=== PATIENT | male | born 1950 | race Caucasian/White ===

== ENCOUNTER → 2016-10-10 | Outpatient (CLI) | payer OTHER ==
[~2016-10-10] MED LIST: ASPI81TA27 PO; ATEN100T PO; ATOR1TAB PO; HYDR12.56 PO; LEVEMIR SC; LEVO175T33 PO; LISI40TA PO; PAR20T PO; [UNRECOGNIZED DRUG - CODE] EX; [UNRECOGNIZED DRUG - CODE] PO
[2016-10-10 12:49] LABS: Basophils # (auto) 0 uL; Basophils % (auto) 0.3 % (0.0-2.0); Eosinophils # (auto) 0.2 uL; Eosinophils % (auto) 1.8 % (0.0-7.0); Hematocrit 42.2 % (41.0-53.0); Hemoglobin 14.2 g/dL (13.5-17.5); Lymphocytes # (auto) 2.3 uL; Lymphocytes % (auto) 19.4 % (10.0-50.0); Mean Corpuscular Hgb Conc. 33.8 g/dL (32.0-36.0); Mean Platelet Volume 7.9 fL (7.4-10.4); Monocytes # (auto) 0.8 uL; Monocytes % (auto) 6.4 % (0.0-12.0); Neutrophils # (auto) 8.6 uL; Neutrophils % (auto) 72.1 % (37.0-80.0); Platelet Count (auto) 349 10^3/uL (140-450); Red Cell Distribution Width 13.6 % (11.6-16.0); White Blood Cell 11.9 10^3/uL (4.4-10.8)
[2016-10-10 12:58] LABS: Urine Bilirubin Negative (Negative); Urine Blood Negative /uL (Negative); Urine Color Yellow (Yellow); Urine Glucose TRACE mg/dL (Normal); Urine Ketone Negative (Negative); Urine Mucus FEW (None Seen); Urine Nitrite Negative (Negative); Urine RBC 1 /hpf (0 - 3); Urine Squamous Epithelial Cell FEW /hpf (<5); Urine Urobilinogen Normal (Negative)
[2016-10-10 13:20] LABS: Albumin 3.5 g/dL (3.4-5.0); BUN/Creatinine Ratio 33.3; Bilirubin, Total 0.5 mg/dL (0.2-1.0); Calcium 9.2 mg/dL (8.5-10.1); Total Protein 7.7 g/dL (6.4-8.2)
== END | disposition home or self-care (01) ==
LOC: LAB 12:09
PROVIDERS: ATTEND Internal Medicine
DX: Z00.00 Encounter for general adult medical examination without abnormal findings (principal); I10 Essential (primary) hypertension; E78.2 Mixed hyperlipidemia; E55.9 Vitamin D deficiency, unspecified
CPT/HCPCS: 36415; 80053; 80061; 81001; 82043; 83036; 84153; 85025

== ENCOUNTER → 2016-10-10 | Outpatient (CLI) | payer OTHER | END | disposition home or self-care (01) | LOC: XY 12:48 | PROVIDERS: ATTEND Internal Medicine | DX: M79.604 Pain in right leg (principal); M79.605 Pain in left leg; R53.1 Weakness | CPT/HCPCS: 93923; 93925 ==

== ENCOUNTER 2017-05-19 18:27 | Inpatient (IN) | payer OTHER ==
[~2017-05-19] VITALS: Ht 182.9 cm; Wt 142.1 kg
[~2017-05-19 18:27] MED LIST changes: +PSEU120T2 PO; -[UNRECOGNIZED DRUG - CODE] PO
[2017-05-19 20:14] LABS: Basophils # (auto) 0 uL; Basophils % (auto) 0.5 % (0.0-2.0); Eosinophils # (auto) 0.3 uL; Eosinophils % (auto) 3.1 % (0.0-7.0); Hematocrit 37.2 % (41.0-53.0); Lymphocytes # (auto) 1.3 uL; Lymphocytes % (auto) 14.9 % (10.0-50.0); Mean Corpuscular Hemoglobin 28.7 pg (28.0-32.0); Mean Corpuscular Hgb Conc. 32.1 g/dL (32.0-36.0); Mean Corpuscular Volume 89.1 fL (80.0-100.0); Monocytes # (auto) 0.7 uL; Monocytes % (auto) 7.5 % (0.0-12.0); Neutrophils # (auto) 6.5 uL; Nucleated Red Blood Cells % 0.1 %; Platelet Count (auto) 284 10^3/uL (140-450); Red Blood Cells 4.18 10^6/uL (4.5-5.90); Red Cell Distribution Width 16.4 % (11.8-14.3); White Blood Cell 8.8 10^3/uL (4.4-10.8)
[2017-05-19 20:28] LABS: Partial Thromboplastin Time 25.2 sec (22.64-33.71); Prothrombin Time 10.9 sec (9.37-12.3)
[2017-05-19 20:35] LABS: Albumin 3.4 g/dL (3.4-5.0); BUN/Creatinine Ratio 49.6; Calcium 8.7 mg/dL (8.5-10.1); Magnesium 2.5 mg/dL (1.6-2.6); Potassium 5.3 mmol/L (3.5-5.1)
[2017-05-19 20:38] LABS: Bilirubin, Total 0.3 mg/dL (0.2-1.0); Total Protein 7.7 g/dL (6.4-8.2)
[2017-05-19] MEDS ORDERED: ACETAMINOPHEN/CODEINE#3 (300/30mg) TAB PO ONE (23:15)
[2017-05-19] MEDS ORDERED: metFORMIN HYDROCHLORIDE 500 MG TAB PO ONE (23:15)
[2017-05-19] MEDS ORDERED: CARVEDILOL 12.5 MG TAB PO ONE (23:15)
[2017-05-19] MEDS ORDERED: GABAPENTIN 300 MG CAP PO ONE (23:15)
[2017-05-19] MEDS ORDERED: INSULIN DETEMIR(LEVEMIR) 1unit/0.01ml Soln (100units/ml) SC ONE (23:22)
[2017-05-20] VITALS (7 sets, daily range): BP systolic 110–155; BP diastolic 46–76
[2017-05-20] MEDS ORDERED: INSULIN DETEMIR(LEVEMIR) 1unit/0.01ml Soln (100units/ml) SC ONE
[2017-05-20] MEDS ORDERED: MORPHINE SULFATE 4 MG/ML SYR/VIAL IV PRN (01:00)
[2017-05-20] MEDS ORDERED: NITROGLYCERIN 0.4 MG SL TAB SL PRN (01:00)
[2017-05-20] MEDS ORDERED: SODIUM CHLORIDE 0.9% 250 ML IV ONE (02:15)
[2017-05-20] MEDS ORDERED: ACETAMINOPHEN 500 MG TAB PO PRN (02:45)
[2017-05-20] MEDS ORDERED: ONDANSETRON HCL 4 MG/2 ML VIAL IV PRN (02:45)
[2017-05-20] MEDS ORDERED: DEXTROSE (50%) 50ML SYRG IV PRN (02:45)
[2017-05-20] MEDS ORDERED: HYDROcodone-ACET 5/325MG TAB PO PRN (02:45)
[2017-05-20] MEDS: ACCU-CHEK COMFORT CURVE STRIP VI SCH ×4 (06:10→22:09)
[2017-05-20] MEDS: InsuLIN REG 1unit/0.01ml Soln (100units/ml) SC SCH ×3 (06:11→17:33)
[2017-05-20] MEDS: LEVOTHYROXINE SODIUM 50 MCG TAB PO SCH (06:12)
[2017-05-20 09:20] LABS: Basophils # (auto) 0 uL; Basophils % (auto) 0.5 % (0.0-2.0); Eosinophils # (auto) 0.3 uL; Eosinophils % (auto) 3.6 % (0.0-7.0); Hematocrit 35.1 % (41.0-53.0); Hemoglobin 11.3 g/dL (13.5-17.5); Lymphocytes # (auto) 1.5 uL; Lymphocytes % (auto) 17.3 % (10.0-50.0); Mean Corpuscular Hemoglobin 28.8 pg (28.0-32.0); Mean Corpuscular Hgb Conc. 32.2 g/dL (32.0-36.0); Mean Corpuscular Volume 89.5 fL (80.0-100.0); Monocytes # (auto) 0.8 uL; Monocytes % (auto) 9.8 % (0.0-12.0); Neutrophils # (auto) 5.8 uL; Neutrophils % (auto) 68.8 % (37.0-80.0); Platelet Count (auto) 251 10^3/uL (140-450); Red Blood Cells 3.92 10^6/uL (4.5-5.90); Red Cell Distribution Width 16.1 % (11.8-14.3); White Blood Cell 8.4 10^3/uL (4.4-10.8)
[2017-05-20 09:47] LABS: BUN/Creatinine Ratio 49.1; Calcium 8.4 mg/dL (8.5-10.1); Potassium 4.9 mmol/L (3.5-5.1)
[2017-05-20] MEDS: ATORVASTATIN 20 MG TAB PO SCH (10:00)
[2017-05-20] MEDS ORDERED: FUROSEMIDE 20 MG TAB PO SCH (10:00)
[2017-05-20] MEDS: ASPirin-EC 81 mg tab PO SCH (10:00)
[2017-05-20] MEDS ORDERED: ALBUTEROL SULF 2.5 MG/0.5ML(0.5%) NEB SOLN NEB PRN (11:15)
[2017-05-20] MEDS: CLOPIDOGREL BISULFATE 75 MG TAB PO SCH (11:23)
[2017-05-20] MEDS: CARVEDILOL 3.125 MG TAB PO SCH ×3 (11:24→22:15)
[2017-05-20] MEDS ORDERED: FUROSEMIDE 40 MG/4 ML VIAL IV ONE ×2 (14:00→18:00)
[2017-05-20] MEDS ORDERED: POTASSIUM CHL 20 Meq TABLET PO ONE (18:00)
[2017-05-20] MEDS ORDERED: InsuLIN REG 1unit/0.01ml Soln (100units/ml) SC SCH (22:00)
[2017-05-21] VITALS (7 sets, daily range): BP systolic 100–155; BP diastolic 50–85
[2017-05-21 05:48] LABS: Basophils # (auto) 0.1 uL; Basophils % (auto) 0.7 % (0.0-2.0); Eosinophils # (auto) 0.2 uL; Eosinophils % (auto) 2.9 % (0.0-7.0); Hematocrit 35.2 % (41.0-53.0); Hemoglobin 11.6 g/dL (13.5-17.5); Lymphocytes # (auto) 1.6 uL; Lymphocytes % (auto) 19.3 % (10.0-50.0); Mean Corpuscular Volume 87.8 fL (80.0-100.0); Monocytes # (auto) 0.8 uL; Monocytes % (auto) 9.3 % (0.0-12.0); Neutrophils # (auto) 5.6 uL; Neutrophils % (auto) 67.8 % (37.0-80.0); Platelet Count (auto) 277 10^3/uL (140-450); Red Blood Cells 4.01 10^6/uL (4.5-5.90); Red Cell Distribution Width 16.4 % (11.8-14.3); White Blood Cell 8.2 10^3/uL (4.4-10.8)
[2017-05-21] MEDS: FUROSEMIDE 20 MG TAB PO SCH ×2 (06:00→18:28)
[2017-05-21 06:05] LABS: Albumin 3.2 g/dL (3.4-5.0); Calcium 8.8 mg/dL (8.5-10.1); Potassium 4.2 mmol/L (3.5-5.1)
[2017-05-21 06:07] LABS: BUN/Creatinine Ratio 43.8
[2017-05-21 06:09] LABS: Bilirubin, Total 0.4 mg/dL (0.2-1.0)
[2017-05-21] MEDS: InsuLIN REG 1unit/0.01ml Soln (100units/ml) SC SCH ×3 (06:35→17:26)
[2017-05-21] MEDS: ACCU-CHEK COMFORT CURVE STRIP VI SCH ×3 (06:35→17:25)
[2017-05-21] MEDS: LEVOTHYROXINE SODIUM 50 MCG TAB PO SCH (06:35)
[2017-05-21] MEDS: ATORVASTATIN 20 MG TAB PO SCH (09:58)
[2017-05-21] MEDS: CARVEDILOL 3.125 MG TAB PO SCH (09:58)
[2017-05-21] MEDS: CLOPIDOGREL BISULFATE 75 MG TAB PO SCH (09:58)
[2017-05-21] MEDS: ASPirin-EC 81 mg tab PO SCH (09:58)
[2017-05-21] MEDS ORDERED: LISINOPRIL 20 MG TAB PO SCH (10:00)
[2017-05-21] MEDS ORDERED: FUROSEMIDE 20 MG TAB PO ONE (11:15)
[2017-05-21] MEDS ORDERED: PARoxetine 20 MG TAB PO ONE (12:30)
[2017-05-22] MEDS ORDERED: PARoxetine 20 MG TAB PO SCH (10:00)
== END 2017-05-21 20:20 | disposition home or self-care (01) | DRG 280 ==
LOC: ER 18:27 → TELE 18:28 → ER 20:51 → TELE 05-20 02:40 → TELE-CENTR 05-20 02:47
PROVIDERS: ADMIT Nurse Practitioner Family; ATTEND Family Medicine
DX: I21.A1 Myocardial infarction type 2 (principal); I50.43 Acute on chronic combined systolic (congestive) and diastolic (congestive) heart failure; E11.40 Type 2 diabetes mellitus with diabetic neuropathy, unspecified; E11.65 Type 2 diabetes mellitus with hyperglycemia; J44.1 Chronic obstructive pulmonary disease with (acute) exacerbation; Z68.41 Body mass index [BMI] 40.0-44.9, adult; I11.0 Hypertensive heart disease with heart failure; D64.9 Anemia, unspecified; E03.9 Hypothyroidism, unspecified; E66.01 Morbid (severe) obesity due to excess calories; E78.5 Hyperlipidemia, unspecified; E87.5 Hyperkalemia; F41.9 Anxiety disorder, unspecified; G89.29 Other chronic pain; G56.03 Carpal tunnel syndrome, bilateral upper limbs; M54.12 Radiculopathy, cervical region; M54.5 Low back pain; I25.10 Atherosclerotic heart disease of native coronary artery without angina pectoris; M19.90 Unspecified osteoarthritis, unspecified site; Z79.02 Long term (current) use of antithrombotics/antiplatelets; Z79.4 Long term (current) use of insulin; Z79.82 Long term (current) use of aspirin; Z79.899 Other long term (current) drug therapy; Z80.7 Family history of other malignant neoplasms of lymphoid, hematopoietic and related tissues; Z82.49 Family history of ischemic heart disease and other diseases of the circulatory system; Z83.3 Family history of diabetes mellitus; Z85.72 Personal history of non-Hodgkin lymphomas; Z98.61 Coronary angioplasty status; Z88.0 Allergy status to penicillin
CPT/HCPCS: 36415; 36600; 70450; 71010; 72125; 80048; 80053; 80061; 82550; 82805; 82962; 83036; 83735; 83880; 84443; 84484; 85025; 85610; 85730; 93005; 93306; 96372; 96374; 96375; J1815

== ENCOUNTER → 2019-01-12 | Outpatient (CLI) | payer OTHER ==
[~2019-01-12] MED LIST changes: +ASPI-404 PO; -ASPI81TA27 PO; -LISI40TA PO; -[UNRECOGNIZED DRUG - CODE] EX
[2019-01-12 13:32] LABS: Basophils # (auto) 0.1 uL; Basophils % (auto) 0.9 % (0.0-2.0); Eosinophils # (auto) 0.3 uL; Eosinophils % (auto) 3.5 % (0.0-7.0); Hematocrit 37.2 % (41.0-53.0); Hemoglobin 12.4 g/dL (13.5-17.5); Lymphocytes # (auto) 1.8 uL; Mean Corpuscular Hemoglobin 30.2 pg (28.0-32.0); Mean Corpuscular Hgb Conc. 33.4 g/dL (32.0-36.0); Mean Corpuscular Volume 90.2 fL (80.0-100.0); Monocytes # (auto) 0.7 uL; Monocytes % (auto) 7.8 % (0.0-12.0); Neutrophils # (auto) 6.4 uL; Neutrophils % (auto) 68.8 % (37.0-80.0); Platelet Count (auto) 281 10^3/uL (140-450); Red Blood Cells 4.12 10^6/uL (4.5-5.90); Red Cell Distribution Width 14.3 % (11.8-14.3); White Blood Cell 9.3 10^3/uL (4.4-10.8)
[2019-01-12 13:40] LABS: Urine Bacteria NONE SEEN /hpf (None Seen); Urine Blood TRACE /uL (Negative); Urine Mucus FEW (None Seen); Urine Specific Gravity 1.017 (1.001-1.035); Urine WBC 1 /hpf (0 - 3)
[2019-01-12 14:35] LABS: Albumin 3.3 g/dL (3.4-5.0); Calcium 8.9 mg/dL (8.5-10.1); Potassium 4.2 mmol/L (3.5-5.1)
[2019-01-12 14:41] LABS: BUN/Creatinine Ratio 23.2; Bilirubin, Total 0.4 mg/dL (0.2-1.0); Total Protein 7.5 g/dL (6.4-8.2)
== END | disposition home or self-care (01) ==
LOC: LAB 13:10
PROVIDERS: ATTEND Physician Assistant
DX: Z12.5 Encounter for screening for malignant neoplasm of prostate (principal); I11.0 Hypertensive heart disease with heart failure; I50.9 Heart failure, unspecified; R53.83 Other fatigue; K21.9 Gastro-esophageal reflux disease without esophagitis; G47.33 Obstructive sleep apnea (adult) (pediatric); E11.65 Type 2 diabetes mellitus with hyperglycemia
CPT/HCPCS: 36415; 80053; 80061; 81001; 83036; 84153; 84403; 85025

== ENCOUNTER 2019-01-23 08:02 | Inpatient (IN) | payer OTHER ==
[2019-01-21 11:31] LABS: Basophils # (auto) 0.1 uL; Basophils % (auto) 0.7 % (0.0-2.0); Eosinophils # (auto) 0.4 uL; Eosinophils % (auto) 3.6 % (0.0-7.0); Hematocrit 37.1 % (41.0-53.0); Hemoglobin 12.4 g/dL (13.5-17.5); Lymphocytes # (auto) 1.8 uL; Lymphocytes % (auto) 16.1 % (10.0-50.0); Mean Corpuscular Hemoglobin 30.1 pg (28.0-32.0); Mean Corpuscular Hgb Conc. 33.4 g/dL (32.0-36.0); Mean Corpuscular Volume 90.3 fL (80.0-100.0); Monocytes # (auto) 0.9 uL; Monocytes % (auto) 7.8 % (0.0-12.0); Neutrophils # (auto) 7.9 uL; Neutrophils % (auto) 71.8 % (37.0-80.0); Platelet Count (auto) 267 10^3/uL (140-450); Red Blood Cells 4.11 10^6/uL (4.5-5.90); Red Cell Distribution Width 14.4 % (11.8-14.3)
[2019-01-21 11:49] LABS: INR 0.97 (0.9-1.15); Partial Thromboplastin Time 24.9 sec (23.64-32.05)
[2019-01-21 12:11] LABS: Urine Bacteria NONE SEEN /hpf (None Seen); Urine Blood Negative /uL (Negative); Urine WBC <1 /hpf (0 - 3)
[2019-01-21 14:06] LABS: Potassium 4.3 mmol/L (3.5-5.1)
[2019-01-21 14:10] LABS: Albumin 3.6 g/dL (3.4-5.0); BUN/Creatinine Ratio 27.2; Bilirubin, Total 0.4 mg/dL (0.2-1.0); Total Protein 7.3 g/dL (6.4-8.2)
[~2019-01-23] VITALS: Ht 188 cm; Wt 135.0 kg
[~2019-01-23 08:02] MED LIST changes: -ATEN100T PO; +BENA40TA7 PO; +CAR125T PO; +CHOL1TAB42 PO; +CLOP75TA28 PO; +FURO1TAB31 PO; +GLIP10TA9 PO; -HYDR12.56 PO; +LACTCAP3 PO; -LEVO175T33 PO; +LEVO25TA49 PO; +METF-372 PO; +OME20T PO; -PAR20T PO; +PARO10TA93 PO; +POTA1TAB61 PO; -PSEU120T2 PO
[2019-01-23] MEDS ORDERED: LIDOCAINE 2%HCL (LOCAL ANESTH.) INJ 20ML MDV ONE (08:14)
[2019-01-23] MEDS ORDERED: SODIUM CHL 0.9% 0 ML ONE (08:53)
[2019-01-23] MEDS ORDERED: fentaNYL CITRATE 100 MCG/2 ML VL ONE (08:53)
[2019-01-23] MEDS ORDERED: ANGIOMAX 250 MG VIAL IV ONE (08:53)
[2019-01-23] MEDS ORDERED: MIDAZOLAM HCL 1MG/1ML-2 ML VIAL ONE ×2 (08:53→09:37)
[2019-01-23] MEDS ORDERED: IOHEXOL 350 MG/ML 100ML IJ ONE (08:54)
[2019-01-23] MEDS ORDERED: VERAPAMIL 2.5MG/ML INJ 2ML VIAL IV ONE (09:22)
[2019-01-23] MEDS ORDERED: DEXTROSE (50%) 50ML SYRG IV PRN (11:15)
[2019-01-23] MEDS: InsuLIN REG 1unit/0.01ml Soln (100units/ml) SC SCH ×3 (11:30→23:29)
[2019-01-23] MEDS: ACCU-CHEK COMFORT CURVE STRIP VI SCH ×3 (11:55→23:29)
[2019-01-23 16:30] VITALS: BP 159/78
--- NOTE | 2019-01-23 16:35 | NUR ---
PATIENT ARRIVED ON UNIT VIA WHEELCHAIR. PATIENT SHOWS NO SIGNS OF DISTRESS, WEARING 2 L NC. RADIAL SITE IS CLEAN DRY INTACT. REPORTING MILD THUMB NUMBNESS FROM LIDOCAINE INJECTION. VS WNL.
--- NOTE | 2019-01-23 16:40 | NUR ---
RE: Medication verification (Levemir) Patient and patient's spouse verified patient's home dose of Levemir with this RN and labels molder RN. Current ordered dose is correct per the patient.
--- NOTE | 2019-01-23 18:38 | NUR ---
Respiratory note: WENT IN TO SPEAK TO PT ABOUT CPAP @ NOC ORDER. PT STATED THAT HE DID WEAR CPAP AT HOME AT NIGHT WITH 2 L/M O2. BUT PT SAID THAT HE DID NOT WANT TO WEAR THE CPAP IN THE HOSPITAL. HE SAID THAT IF HE DOES FEEL LIKE HE NEEDS HE WILL INFORM RESPIRATORY. WILL CONTINUE TO MONITOR.
[2019-01-23 18:42] VITALS: BP 159/78
[2019-01-23] MEDS: glipiZIDE 5 MG TAB PO SCH (19:17)
--- NOTE | 2019-01-23 19:20 | NUR ---
Care endorsed to CHAS Raza. Patient resting in bed with even and unlabored respirations, no distress noted. Fall precautions in place with call light within reach. Heart cath site is clean, dry and intact. Visitor at bedside.
--- NOTE | 2019-01-23 19:30 | NUR ---
Opening Shift Note Assumed care of patient, awake and alert x4. Family members noted at bedside. No S/S of distress/SOB noted at this time. Patient denies pain at this time. Instructed on plan of care and to call for assistance as needed. Bed is locked in lowest position, side rails x 2 are up, and call light is within reach.
--- NOTE | 2019-01-23 19:40 | NUR ---
DOSE VERIFICATION RE: LEVEMIR Patients brought in Levemir home medication. Dose checked against prescription label and verified with patient and patients . Addendum: 01/24/19 at 0612 by RADHA BECERRA RN RN Per patient he takes Levemir at 11:00am and 11:00pm.
--- NOTE | 2019-01-23 19:50 | NUR ---
HOME MEDICATION SENT DOWN TO PHARMACY Home medication Levemir collected and sent down to pharmacy. A copy was given to patient and placed in hardchart. POM wristband placed on patient.
--- NOTE | 2019-01-23 19:50 | NUR ---
DOSAGE: INSULIN Per pharmacist Yolis, he is going to speak to hospitalist regarding insulin dosage because he does not feel comfortable sending up Levemir pen due to the dose being "high". Per prescription label patient is to inject 142 units under the skin every morning and inject 100 units every evening for diabetes.
[2019-01-23 21:34] VITALS: BP 154/68
[2019-01-23] MEDS: ATORVASTATIN 20 MG TAB PO SCH (21:48)
[2019-01-23] MEDS: ENOXAPARIN SOD 60 MG/0.6 ML SYRINGE SC SCH (21:49)
[2019-01-23] MEDS: CARVEDILOL 12.5 MG TAB PO SCH (21:49)
[2019-01-23] MEDS ORDERED: INSULIN DETEMIR 100 UNIT SC SCH (22:00)
--- NOTE | 2019-01-23 22:01 | NUR ---
PAGED HOSPITALIST RE: INSULIN DOSAGE Paged hospitalist regarding insulin dosage. Awaiting call back.
--- NOTE | 2019-01-23 22:20 | NUR ---
SPOKE WITH AURDA OLIVERA RE: LEVEMIR DOSAGE Spoke with Nazanin Scott regarding Levemir dosage. Explained to Nazanin Scott that per pharmacist he did not feel comfortable sending up the Levemir pen due to the dosage being "high." AUDRA Olivera, was notified that patient reports he takes this medication at home and according to him he does not drop if he eats a snack before administrating Levemir. AUDRA Olivera ordered to administer 50 units of Levemir. Order read back and verified. Will carry out orders as received.
--- NOTE | 2019-01-23 22:56 | NUR ---
VP LAB PAGED RE: INSULIN MEDICATION supervisor assembly stock paged regarding insulin medication. Awaiting call back.
--- NOTE | 2019-01-23 22:57 | NUR ---
SPOKE WITH WAREHOUSE INSULATION WORKER RE: INSULIN MEDICATION Notified Maxim perennial house manager that patient reports taking Levemir 100 units of insulin at bedtime and that per pharmacist, he did not feel comfortable sending up Levemir pen due to the dose being "high." Tile Inspector was notified that Dr. Smith had already inputted an order for patient to receive 100 units of Levemir at bedtime but due to the dose being high pharmacist wanted to clarify the dose with hospitalist. supervisor securities vault, Maxim, was notified that this RN Spoke with AUDRA Olivera regarding insulin dosage and per AUDRA Olivera she also did not feel comfortable ordering 100 units of Levemir insulin and per AUDRA Olivera orders were received to administer 50 units of Levemir. Tile Inspector made aware that patient wants to speak to AUDRA Olivera but AUDRA Olivera is unable to speak to the patient at this time. Was advised by perennial house manager to call Dr. Smith and clarify the order since he originally put in order for Levemir of [address] Smith to clarify order.
--- NOTE | 2019-01-23 23:05 | NUR ---
SMITH PAGED RE: CLARIFICATION ORDER FOR INSULIN MEDICATION Smith paged regarding clarification order regarding insulin medication.
--- NOTE | 2019-01-23 23:12 | NUR ---
RECEIVED CALL FROM CARMENCITA RE: INSULIN ORDER Spoke with Dr. Smith regarding insulin order. Per carmencita give patient 50 units of levemir and regular insulin according to sliding scale. Order read back and verified. Will carry out order as received.
--- NOTE | 2019-01-23 23:20 | NUR ---
UPDATED PATIENT RE: LEVEMIR DOSAGE Spoke with patient regarding order received for Levemir. Notified patient that this RN also spoke with Dr. Smith and per Dr. Smith he ordered 50 units of Levemir and for patient to receive regular insulin based on sliding scale. Patient was educated that while he is here in the hospital he might receive less food than what he usually eats at home and while in the hospital we are to monitor his blood sugar and depending on his blood sugar values he could talk to the doctors regarding titrating insulin dosage. Patient verbalized understanding and agreed to taking 50 units of Levemir and regular insulin based on sliding scale. Will administer Levemir and regular insulin as ordered per Dr. Smith.
[2019-01-23 23:34] VITALS: BP 154/64
--- NOTE | 2019-01-24 00:10 | NUR ---
HOSPITALIST PAGED RE: HEART BEAT Hospitalist paged regarding heart beat. Awaiting call back.
--- NOTE | 2019-01-24 00:10 | NUR ---
HEART BEAT Patient reports he feels like his heart skips a beat. Patient denies chest pain, palpitations, shortness of breath, headache, or dizziness at this time. No diaphoresis noted at this time. Current rhythm on child monitor shows sinus rhythm with heart rate of 88. Patient reports that this occasionally occurs at home. Patient also reports that he takes magnesium at home and has not taken it for 2 days. According to patient his heart skips a beat when he does not take his magnesium. Patient does not know the dose of the medication but reports he takes 1 tablet at night and 3 tablets during the day. Instructed patient to ask to bring in copy of medication to verify dose. Patient verbalized understanding. Will make hospitalist aware.
[2019-01-24] MEDS ORDERED: LEVO25TA6 PO (02:31)
[2019-01-24] MEDS ORDERED: LEVO150T10 PO (02:31)
[2019-01-24 04:45] VITALS: BP 118/58
[2019-01-24] MEDS ORDERED: MAGN400C3 PO (06:24)
[2019-01-24] MEDS: ACCU-CHEK COMFORT CURVE STRIP VI SCH ×4 (06:46→22:03)
[2019-01-24] MEDS: InsuLIN REG 1unit/0.01ml Soln (100units/ml) SC SCH ×4 (06:46→22:03)
[2019-01-24] MEDS: LEVOTHYROXINE SODIUM 25 MCG TAB PO SCH (06:46)
[2019-01-24] MEDS: glipiZIDE 5 MG TAB PO SCH ×2 (06:53→18:12)
--- NOTE | 2019-01-24 06:56 | NUR ---
CLOSING SHIFT NOTE Patient is laying in bed with even and unlabored respirations. No S/S of distress/SOB or pain noted at this time. Bed is locked lowest position, side rails x 2 are up, and call light is within reach. Will endorse patient care to day shift RN Melissa. Will notify Melissa that patient was paged regarding heart beat and hospitalist did not return call. Patient denies dizziness, headache, shortness of breath, or palpitations at this time.
[2019-01-24] MEDS ORDERED: INSULIN DETEMIR SC SCH (07:00)
--- NOTE | 2019-01-24 07:03 | NUR ---
ORDER REVIEWED FOR CPAP. PT ASSESSED AND PT STATES HE DOES NOT WANT TO WEAR OUR CPAP MACHINE. PT EDUCATED THAT HE CAN BRING HIS OWN MASK FROM HOME. PT REFUSES STILL. PT AWARE TO LET RT STAFF KNOW IF HE CHANGES HIS MIND. HE IS ON 2LNC, SPO2 97%.
[2019-01-24 07:18] LABS: Basophils # (auto) 0.1 uL; Basophils % (auto) 0.5 % (0.0-2.0); Eosinophils # (auto) 0.4 uL; Eosinophils % (auto) 3.4 % (0.0-7.0); Hematocrit 35.6 % (41.0-53.0); Lymphocytes # (auto) 2.5 uL; Lymphocytes % (auto) 22.9 % (10.0-50.0); Mean Corpuscular Hemoglobin 30.5 pg (28.0-32.0); Mean Corpuscular Hgb Conc. 33.8 g/dL (32.0-36.0); Mean Corpuscular Volume 90.3 fL (80.0-100.0); Monocytes # (auto) 0.9 uL; Neutrophils % (auto) 65.2 % (37.0-80.0); Platelet Count (auto) 263 10^3/uL (140-450); Red Blood Cells 3.94 10^6/uL (4.5-5.90); Red Cell Distribution Width 14.2 % (11.8-14.3); White Blood Cell 10.7 10^3/uL (4.4-10.8)
[2019-01-24 07:20] LABS: INR 1.02 (0.9-1.15)
[2019-01-24 07:37] LABS: Albumin 3.3 g/dL (3.4-5.0); BUN/Creatinine Ratio 23.5; Bilirubin, Total 0.5 mg/dL (0.2-1.0); Calcium 8.8 mg/dL (8.5-10.1); Total Protein 6.9 g/dL (6.4-8.2)
[2019-01-24 09:00] VITALS: BP 143/70
[2019-01-24] MEDS ORDERED: PANTOPRAZOLE 40 MG TAB PO SCH (10:00)
--- NOTE | 2019-01-24 10:00 | NUR ---
Regarding Protonix, patient states he takes it at bedtime so refusing to take med at this time. Spoke to Pharmacist and had it reschedule. Cont care
[2019-01-24] MEDS: ENOXAPARIN SOD 60 MG/0.6 ML SYRINGE SC SCH ×2 (10:27→22:03)
[2019-01-24] MEDS: CHOLECALCIFEROL (VITD3) 1,000 UNIT TAB PO SCH (10:28)
[2019-01-24] MEDS: PARoxetine 20 MG TAB PO SCH (10:29)
[2019-01-24] MEDS: BENAZEPRIL HCL 10 MG TAB PO SCH (10:29)
[2019-01-24] MEDS: POTASSIUM CHL 10 Meq TABLET PO SCH (10:29)
[2019-01-24] MEDS: FUROSEMIDE 40 MG TAB PO SCH (10:30)
[2019-01-24] MEDS: CARVEDILOL 12.5 MG TAB PO SCH ×2 (10:30→22:02)
--- NOTE | 2019-01-24 10:50 | NUR ---
Spoke to Pharmacist regarding Levemir Patient states he takes 142 units Levemir in the a.m and 100 units HS and that he has been taking this dose for over "10 years". Copy of home prescription in chart and sent to pharmacy as well, home med Levemir in pharmacy at this time. Per Marisabel in pharmacy, dose is on Hold because she "does not feel comfortable since is too high of a dose" so she states confirmation needed from Hospitalist at this time to continue home dose and release HOLD. This rn paged Dr Smith at this time. [facility] care. Addendum: 01/24/19 at 1235 by Melissa Byrd RN PER MARISABEL, "PROVIDER LAST NIGHT WAS NOT COMFORTABLE"
[2019-01-24] MEDS ORDERED: MAGN64TA4 PO (11:29)
--- NOTE | 2019-01-24 12:11 | NUR ---
SPOKE TO MD MD HAWLEY AWARE OF PATIENT'S STATUS. NEW ORDERS RECEIVED TO CONTINUE LEVEMIR DOSE FROM HOME, MAGNESIUM QDAILY AND HS PATIENT STATED HE TAKES AT HOME. NEW ORDER FOR COLACE OBTAINED PATIENT REQUESTING STOOL SOFTENER. WILL MEDICATE ORDERED UPON OBTAINING LEVEMIR PEN FROM PHARMACY. [facility] CARE
[2019-01-24 12:58] VITALS: BP 147/69
--- NOTE | 2019-01-24 12:58 | NUR ---
SPOKE TO MD MD HAWLEY AWARE OF PATIENT'S VS. STATES CARDIOTHORACIC SURGEON IS NOT GOING TO BE IN THIS WEEK. MD HAWLEY STATES HE WILL MAKE CALL ON SATURDAY TO TRANSFER PATIENT TO [facility]. WILL CONT TO MONITOR
[2019-01-24] MEDS: DOCUSATE SOD 100 MG CAP PO PRN ×2 (13:17→22:22)
[2019-01-24] MEDS: INSULIN DETEMIR SC SCH (13:50)
[2019-01-24 16:46] VITALS: BP 139/72
--- NOTE | 2019-01-24 19:30 | NUR ---
Opening Shift Note: A&Ox4, resting in bed. Currently on 1LO2 via NC; 2LO2 at home; pain level 0/10; and at baseline ambulates with a cane; currently independent to the bathroom, SBA for long distances. Bed locked in lowest position, side rails up x2, and call light within reach. IV 20 g to left wrist IID inserted on 01/23/19. Skin: generalized bruising present; left wrist incision: 4x4 with tegaderm CDI. Patient is s/p LHC/RHC with Dr. Smith on 01/23/19. POC discussed with patient and questions answered. Will continue to round prn.
[2019-01-24] MEDS: MAGNESIUM CHLORIDE PO SCH (22:01)
[2019-01-24] MEDS: INSULIN DETEMIR 100 UNIT/ML SC SCH (22:02)
[2019-01-24] MEDS: ATORVASTATIN 20 MG TAB PO SCH (22:02)
[2019-01-24] MEDS: PANTOPRAZOLE 40 MG TAB PO SCH (22:02)
--- NOTE | 2019-01-25 00:09 | NUR ---
RT NOTE PT HAS ORDER FOR CPAP AT NIGHT BUT PT REFUSED TO TRY CPAP. CPAP NOT IN ROOM. NO RESP DISTRESS NOTED
[2019-01-25 05:22] VITALS: BP 118/52
[2019-01-25] MEDS: glipiZIDE 5 MG TAB PO SCH ×2 (06:49→18:00)
[2019-01-25] MEDS: INSULIN DETEMIR SC SCH ×2 (06:50→10:46)
[2019-01-25] MEDS: LEVOTHYROXINE SODIUM 25 MCG TAB PO SCH (06:50)
[2019-01-25] MEDS: ACCU-CHEK COMFORT CURVE STRIP VI SCH ×4 (06:50→22:10)
[2019-01-25] MEDS: InsuLIN REG 1unit/0.01ml Soln (100units/ml) SC SCH ×4 (06:50→22:10)
--- NOTE | 2019-01-25 06:57 | NUR ---
Per patient, he takes 142 units of levemir (patient's own medication) at 1000 after breakfast. Call was made to pharmacy to switch time from 0700 to 1000.
--- NOTE | 2019-01-25 07:40 | NUR ---
OPENING SHIFT NOTE PT RESTING IN BED LOW FOWLERS. RESPIRATIONS EVEN AND UNLABORED. A&OX4. NO S/S OF DISTRESS. DENIES PAIN. PATIENT UPDATED ON POC. ALL QUESTIONS ANSWERED. BED IN LOWEST LOCKED POSITION, SIDE RAILS UP X2. WITH CALL LIGHT WITHIN REACH.
[2019-01-25 09:00] VITALS: BP 149/78
--- NOTE | 2019-01-25 10:05 | NUR ---
Respiratory note: ASSESSED PT, HR 68, RR 18, POX 95% ON 1L NC. BREATH SOUNDS CLEAR THROUGHOUT. NO S/S OF RESPIRATORY DISTRESS. PT DID NOT WEAR CPAP LAST NIGHT, SAID HE SLEPT WELL WITHOUT IT. PT STATES HE DOES NOT WANT TO WEAR IT TONIGHT WELL. WILL ENDORSE PT CARE TO NOC SHIFT RT.
--- NOTE | 2019-01-25 10:30 | NUR ---
Spoke to family independence case manager re: ss consult Spoke to Era and notified her of consult to transfer patient to [facility] tomorrow per Doctor Smith. Required paperwork faxed to [facility] [phone]. Will cont to monitor
[2019-01-25] MEDS: [UNRECOGNIZED DRUG - OTHER] PO SCH (10:31)
[2019-01-25] MEDS: FUROSEMIDE 40 MG TAB PO SCH (10:32)
[2019-01-25] MEDS: CARVEDILOL 12.5 MG TAB PO SCH ×2 (10:32→22:10)
[2019-01-25] MEDS: POTASSIUM CHL 10 Meq TABLET PO SCH (10:32)
[2019-01-25] MEDS: BENAZEPRIL HCL 10 MG TAB PO SCH (10:33)
[2019-01-25] MEDS: CHOLECALCIFEROL (VITD3) 1,000 UNIT TAB PO SCH (10:33)
[2019-01-25] MEDS: PARoxetine 20 MG TAB PO SCH (10:33)
[2019-01-25] MEDS: ENOXAPARIN SOD 60 MG/0.6 ML SYRINGE SC SCH ×2 (10:34→22:10)
--- NOTE | 2019-01-25 10:46 | NUR ---
Spoke to [facility] assistant fitness manager Fauzia with case management states she received faxed paper work but progress notes, H&P, and direct number to Dr Smith is required. This rn paged Doctor Smith to notify.
--- NOTE | 2019-01-25 10:54 | NUR ---
Spoke to Site Worker Spoke to Doctor Smith and notified him of required paper work from [facility] regarding transfer as per requested by [facility] transplant case manager Fauzia. He states he will be in tomorrow to input required documentation including order of intent and he states he will contact the Doctor at [facility] tomorrow as well. Doctor Smith states to consult Hospitalist for evaluation and management today and that he will be in tomorrow to transfer patient and communicate with director of casework. Paged Dr. Cheng to notify of hospitalist consult as ordered. Cont care
--- NOTE | 2019-01-25 11:21 | NUR ---
Spoke to [facility] correctional case manager This rn spoke to [facility] correctional case manager Fauzia and notified her that Doctor Smith states he will be in tomorrow to arrange transfer and provide needed documentation. Per Fauzia cannot "hold transfer process at this time" she states "it will be cancelled" for today and to contact case management tomorrow once order received from MD Smith. Per Doctor Smith "that's fine" he will take care of it tomorrow. Cont care
[2019-01-25 13:00] VITALS: BP 135/65
[2019-01-25 17:00] VITALS: BP 138/68
--- NOTE | 2019-01-25 19:00 | NUR ---
ENDORSED PATIENT CARE: ENDORSED PATIENT CARE TO SONJA RN. PATIENT RESTING COMFORTABLY IN CHAIR. NO DISTRESS NOTED.
--- NOTE | 2019-01-25 20:15 | NUR ---
Opening Shift Note: A&Ox4, resting in bed. Currently on 1LO2 via NC; 2LO2 at home; pain level 0/10; and at baseline ambulates with a cane; currently independent to the bathroom, SBA for long distances. Bed locked in lowest position, side rails up x2, and call light within reach. IV 20 g to left wrist IID inserted on 01/23/19. Skin: generalized bruising present; left wrist incision: COMPUTER CLERK. Patient is s/p LHC/RHC with Dr. Smith on 01/23/19. POC discussed with patient and questions answered. Will continue to round prn.
--- NOTE | 2019-01-25 21:00 | NUR ---
RT NOTE: PT SEEN BY RT FOR CPAP @ NOC ORDERS. PT STATED HE DID NOT WANT TO WEAR CPAP. SPO2 93% ON 1L NC, HR 77, RR 18, CLEAR/DIMINISHED BREATH SOUNDS. NO SOB OR DISTRESS NOTED.
[2019-01-25 22:00] VITALS: BP 132/76
[2019-01-25] MEDS: MAGNESIUM CHLORIDE PO SCH (22:09)
[2019-01-25] MEDS: ATORVASTATIN 20 MG TAB PO SCH (22:10)
[2019-01-25] MEDS: PANTOPRAZOLE 40 MG TAB PO SCH (22:10)
[2019-01-25] MEDS: INSULIN DETEMIR 100 UNIT/ML SC SCH (22:10)
[2019-01-25] MEDS: DOCUSATE SOD 100 MG CAP PO PRN (22:11)
[2019-01-26 05:00] VITALS: BP 118/51
[2019-01-26] MEDS: ACCU-CHEK COMFORT CURVE STRIP VI SCH ×2 (06:55→11:31)
[2019-01-26] MEDS: InsuLIN REG 1unit/0.01ml Soln (100units/ml) SC SCH ×2 (06:55→11:40)
[2019-01-26] MEDS: glipiZIDE 5 MG TAB PO SCH (06:55)
[2019-01-26] MEDS: LEVOTHYROXINE SODIUM 25 MCG TAB PO SCH (06:55)
--- NOTE | 2019-01-26 07:09 | NUR ---
RT NOTE: NO SIGNS OF RESPIRATORY DISTRESS NOTED. LUNG SOUNDS CLEAR T/O. NO CPAP IN ROOM. ON RA SPO2 96 HR 70 RR 14. WILL CONTINUE TO MONITOR.
--- NOTE | 2019-01-26 08:00 | NUR ---
Opening Shift Note Assumed care of patient, alert and oriented. No S/S of distress/SOB or pain. Bed in lowest position/locked. Bedside rails up x2. Updated on POC and to call for assist PRN with call light within reach. Will continue to monitor for changes Q1hr and PRN.
[2019-01-26 08:17] VITALS: BP 105/51
--- NOTE | 2019-01-26 08:27 | NUR ---
physically impaired teacher 01/25/19 I received a page from nurse Rogers letting me know that MD wants this patient transferred to [facility] tomorrow for cardiothoracic surgery-that the MD was going to call [facility] tomorrow to speak with MD. I had her fax clinical information to [facility].
[2019-01-26] MEDS: [UNRECOGNIZED DRUG - OTHER] PO SCH (10:51)
[2019-01-26] MEDS: CARVEDILOL 12.5 MG TAB PO SCH (10:52)
[2019-01-26] MEDS: POTASSIUM CHL 10 Meq TABLET PO SCH (10:53)
[2019-01-26] MEDS: CHOLECALCIFEROL (VITD3) 1,000 UNIT TAB PO SCH (10:53)
[2019-01-26] MEDS: PARoxetine 20 MG TAB PO SCH (10:54)
[2019-01-26] MEDS: BENAZEPRIL HCL 10 MG TAB PO SCH (10:55)
[2019-01-26] MEDS: INSULIN DETEMIR SC SCH (10:56)
[2019-01-26] MEDS: FUROSEMIDE 40 MG TAB PO SCH (10:56)
[2019-01-26] MEDS: ENOXAPARIN SOD 60 MG/0.6 ML SYRINGE SC SCH (10:57)
--- NOTE | 2019-01-26 12:30 | NUR ---
SOLAR MANAGER CALL FROM ARTUR RE: [facility] HAS ACCEPTED PATIENT FOR DR FLORIDAIA. SIDDIQUI REQUESTING CD COPY OF CARDIAC CATH RESULTS TO BE SENT WITH PATIENT TO [facility].
[2019-01-26 12:56] VITALS: BP 142/68
--- NOTE | 2019-01-26 13:55 | NUR ---
Transfer: Per Aleisha [facility] has accepted pt. We are waiting for a bed. AYESHA in [employer] faxed over paperwork requesting authorization for financials to [facility]. [facility] will want financials verified before they will transfer pt.
--- NOTE | 2019-01-26 13:57 | NUR ---
[facility] is on will call, auth for [facility] is [id number]
--- NOTE | 2019-01-26 14:00 | NUR ---
BOROUGH COORDINATOR RECEIVED CALL FROM ARTUR PANDYA: PATIENT TRANSFER AWAITING [facility] TO TRANSPORT PATIENT.
--- NOTE | 2019-01-26 14:09 | NUR ---
Transfer: Aleisha from [facility] stated pt has a bed, bed # is 7101 bed 3, unit 7[address], ph # for report is [phone]. [facility] will curing pickling packer pt at 1515 hrs. Christy alaniz RN reiterated That disc must go with other transfer paperwork with pt to [facility]. Christy stated she will work on getting disc
[2019-01-26 14:30] VITALS: BP 142/68
--- NOTE | 2019-01-26 14:30 | NUR ---
CALLED CALLED , WOJCIECH RE: TRANSFER TO [facility].
--- NOTE | 2019-01-26 15:00 | NUR ---
GUILLERMO called just now and informed me that tack picker has been set back one hr. extruding department supervisor time now is 1600hrs. Aleisha at [facility] and Michelle at [facility] informed. Michelle also stated she has cardiology disc to send with pt
--- NOTE | 2019-01-26 15:05 | NUR ---
Discharge Transfers Patient is being transferred to [facility]. Patient is to follow up with accepting doctor at the receiving facility.
--- NOTE | 2019-01-26 15:45 | NUR ---
REPORT CALLED REPORT CALLED AND GIVEN TO CHAS GO, FROM [facility] .
[2019-01-26 16:30] VITALS: BP 133/65
--- NOTE | 2019-01-26 16:54 | NUR ---
Pt being trans to another hosp Order obtained for transfer of CHRIS REDDY to [facility]. Report called/given to CHAS GO. Report given to EMS transport team. Medication reconciliation form completed and copy given to patient. Transported via [facility] along with copied chart and imaging films/disk and all personal belongings. No distress noted on time of departure. Tele unit returned to ICU. Family notified of destination and room number, verbalized understanding.
== END 2019-01-26 16:54 | disposition short-term general hospital (02) | DRG 287 ==
LOC: CATH 08:02 → TELE-WESTW 08:03
PROVIDERS: ADMIT Internal Medicine; ATTEND Internal Medicine
PROC: 4A023N8 Measurement of Cardiac Sampling and Pressure, Bilateral, Percutaneous Approach (ICD-10-PCS; principal; 2019-01-23)
PROC: B2111ZZ Fluoroscopy of Multiple Coronary Arteries using Low Osmolar Contrast (ICD-10-PCS; 2019-01-23)
PROC: B2151ZZ Fluoroscopy of Left Heart using Low Osmolar Contrast (ICD-10-PCS; 2019-01-23)
DX: I25.10 Atherosclerotic heart disease of native coronary artery without angina pectoris (principal); I50.42 Chronic combined systolic (congestive) and diastolic (congestive) heart failure; E66.01 Morbid (severe) obesity due to excess calories; E78.5 Hyperlipidemia, unspecified; E03.9 Hypothyroidism, unspecified; E11.9 Type 2 diabetes mellitus without complications; I11.0 Hypertensive heart disease with heart failure; I42.9 Cardiomyopathy, unspecified; J44.9 Chronic obstructive pulmonary disease, unspecified; Z82.49 Family history of ischemic heart disease and other diseases of the circulatory system; Z83.3 Family history of diabetes mellitus; Z87.891 Personal history of nicotine dependence; Z88.0 Allergy status to penicillin; I25.2 Old myocardial infarction
CPT/HCPCS: 36415; 80053; 81001; 82962; 83735; 85025; 85610; 85730; C1751; G0378; J1815; J2250

== ENCOUNTER → 2019-04-01 | Outpatient (CLI) | payer OTHER ==
[~2019-04-01] MED LIST changes: +LEVO150T10 PO; -LEVO25TA49 PO; +LEVO25TA6 PO; +MAGN64TA4 PO
== END | disposition home or self-care (01) ==
LOC: CT 08:18
DX: J98.11 Atelectasis (principal); I25.110 Atherosclerotic heart disease of native coronary artery with unstable angina pectoris; I70.0 Atherosclerosis of aorta; I70.8 Atherosclerosis of other arteries; M48.10 Ankylosing hyperostosis [Forestier], site unspecified; I11.0 Hypertensive heart disease with heart failure; I50.9 Heart failure, unspecified; E11.9 Type 2 diabetes mellitus without complications; E66.9 Obesity, unspecified; J44.9 Chronic obstructive pulmonary disease, unspecified; Z88.0 Allergy status to penicillin
CPT/HCPCS: 71250

== ENCOUNTER → 2019-05-11 | Outpatient (CLI) | payer OTHER ==
[2019-05-11 13:22] LABS: Basophils # (auto) 0.1 uL; Basophils % (auto) 0.9 % (0.0-2.0); Eosinophils # (auto) 0.3 uL; Hematocrit 36.7 % (41.0-53.0); Hemoglobin 12.5 g/dL (13.5-17.5); Lymphocytes # (auto) 1.5 uL; Lymphocytes % (auto) 16.3 % (10.0-50.0); Mean Corpuscular Hemoglobin 31.4 pg (28.0-32.0); Mean Corpuscular Hgb Conc. 34.1 g/dL (32.0-36.0); Mean Corpuscular Volume 92.3 fL (80.0-100.0); Monocytes # (auto) 0.7 uL; Neutrophils # (auto) 6.8 uL; Neutrophils % (auto) 72.8 % (37.0-80.0); Platelet Count (auto) 308 10^3/uL (140-450); Red Blood Cells 3.97 10^6/uL (4.5-5.90); Red Cell Distribution Width 13.4 % (11.8-14.3); White Blood Cell 9.4 10^3/uL (4.4-10.8)
[2019-05-11 13:27] LABS: Urine Bacteria NONE SEEN /hpf (None Seen); Urine Blood Negative /uL (Negative); Urine Hyaline Cast FEW /lpf (0 - 2); Urine Specific Gravity 1.013 (1.001-1.035); Urine WBC 1 /hpf (0 - 3)
[2019-05-11 13:38] LABS: INR 1.07 (0.9-1.15); Partial Thromboplastin Time 25.4 sec (23.64-32.05)
[2019-05-11 13:51] LABS: Albumin 3.8 g/dL (3.4-5.0); Calcium 9.4 mg/dL (8.5-10.1); Potassium 4.5 mmol/L (3.5-5.1)
[2019-05-11 13:56] LABS: BUN/Creatinine Ratio 24.5; Bilirubin, Total 0.5 mg/dL (0.2-1.0); Total Protein 8.2 g/dL (6.4-8.2)
== END | disposition home or self-care (01) ==
LOC: LAB 13:02
DX: T81.32XD Disruption of internal operation (surgical) wound, not elsewhere classified, subsequent encounter (principal); X58.XXXD Exposure to other specified factors, subsequent encounter; E11.9 Type 2 diabetes mellitus without complications; I11.0 Hypertensive heart disease with heart failure; I50.9 Heart failure, unspecified
CPT/HCPCS: 36415; 80053; 81001; 83036; 85025; 85610; 85730

== ENCOUNTER → 2022-02-05 | Outpatient (CLI) | payer OTHER ==
[~2022-02-05] MED LIST changes: -ASPI-404 PO; +ASPI-543 PO; +ATOR-47 PO; -ATOR1TAB PO; -BENA40TA7 PO; +BENA40TA8 PO
[2022-02-05 12:50] LABS: Basophils # (auto) 0 10 ^3/uL (0-0.2); Basophils % (auto) 0.4 % (0.0-2.0); Eosinophils # (auto) 0.2 10 ^3/uL (0-0.8); Eosinophils % (auto) 2.5 % (0.0-7.0); Hematocrit 34.2 % (41.0-53.0); Hemoglobin 11.4 g/dL (13.5-17.5); Lymphocytes # (auto) 1.8 10 ^3/uL (0.4-5.4); Lymphocytes % (auto) 19.3 % (10.0-50.0); Mean Corpuscular Hemoglobin 30.8 pg (28.0-32.0); Mean Corpuscular Hgb Conc. 33.4 g/dL (32.0-36.0); Mean Corpuscular Volume 92.3 fL (80.0-100.0); Monocytes # (auto) 0.6 10 ^3/uL (0-1.3); Monocytes % (auto) 6.9 % (0.0-12.0); Neutrophils # (auto) 6.6 10 ^3/uL (1.6-8.6); Neutrophils % (auto) 70.9 % (37.0-80.0); Red Cell Distribution Width 12.7 % (11.8-14.3); White Blood Cell 9.4 10^3/uL (4.4-10.8)
[2022-02-05 13:16] LABS: Albumin 3.5 g/dL (3.4-5.0); Calcium 9.2 mg/dL (8.5-10.1); Potassium 5.1 mmol/L (3.5-5.1)
[2022-02-05 13:23] LABS: Free T4 (Free Thyroxine) 1.48 ng/dL (0.89-1.76); Prostate Specific Antigen 0.15 ng/mL (0.0-4.0)
[2022-02-05 13:45] LABS: BUN/Creatinine Ratio 30.9; Bilirubin, Total 0.5 mg/dL (0.2-1.0); Total Protein 7.1 g/dL (6.4-8.2)
== END | disposition home or self-care (01) ==
LOC: LAB 12:00
PROVIDERS: ATTEND Nurse Practitioner Family
DX: Z00.00 Encounter for general adult medical examination without abnormal findings (principal); E11.42 Type 2 diabetes mellitus with diabetic polyneuropathy; R35.1 Nocturia; I10 Essential (primary) hypertension
CPT/HCPCS: 36415; 80053; 80061; 82043; 83036; 84153; 84439; 84443; 85025